=== PATIENT | female | born 1985 | race Two or more races ===

== ENCOUNTER 2018-08-11 20:42 | Emergency (ER) | payer OTHER ==
[~2018-08-11] VITALS: Ht 160 cm; Wt 56.7 kg
[2018-08-11] MEDS ORDERED: NORTREL1 EACH (20:50)
== END 2018-08-11 22:21 | disposition home or self-care (01) ==
LOC: ER 20:42 → EDSEX 20:58 → ER 20:58
DX: S50.12XA Contusion of left forearm, initial encounter (principal); S50.11XA Contusion of right forearm, initial encounter; S80.02XA Contusion of left knee, initial encounter; S60.212A Contusion of left wrist, initial encounter; W22.8XXA Striking against or struck by other objects, initial encounter; Y93.89 Activity, other specified; Y92.89 Other specified places as the place of occurrence of the external cause; Y99.8 Other external cause status

== ENCOUNTER 2019-03-23 12:13 | Emergency (ER) | payer OTHER ==
[~2019-03-23] VITALS: Ht 160 cm; Wt 55.8 kg
[~2019-03-23 12:13] MED LIST: NORTREL1 EACH
== END 2019-03-23 17:20 | disposition home or self-care (01) ==
LOC: ER 12:13
DX: J06.9 Acute upper respiratory infection, unspecified (principal)

== ENCOUNTER 2022-12-02 13:39 | Emergency (ER) | payer OTHER ==
[~2022-12-02] VITALS: Ht 160 cm; Wt 63.5 kg
[2022-12-02] MEDS ORDERED: ANTICONCEPTIVAS (14:03)
== END 2022-12-02 23:36 | disposition home or self-care (01) ==
LOC: ER 13:39
DX: N93.9 Abnormal uterine and vaginal bleeding, unspecified (principal); R10.2 Pelvic and perineal pain